=== PATIENT | female | born 1980 | race Caucasian/White ===

== ENCOUNTER 2017-03-03 10:05 | Emergency (ER) | payer MEDICAID ==
[~2017-03-03] VITALS: Ht 162.6 cm; Wt 96.6 kg
[2017-03-03 10:10] VITALS: BP 143/70
== END 2017-03-03 13:51 | disposition home or self-care (01) ==
LOC: ED 10:05
DX: J03.90 Acute tonsillitis, unspecified (principal); Z98.51 Tubal ligation status
CPT/HCPCS: J0696; J1100

== ENCOUNTER 2017-03-05 17:58 | Emergency (ER) | payer MEDICAID ==
[2017-03-05 19:48] LABS: PLATELET COUNT 210 x10^3mcL (130-400); RED CELL DISTRIBUTION WIDTH 13.9 % (11.5-14.5)
[2017-03-05 20:02] LABS: BAND NEUTROPHIL 0 % (0-10); BASOPHIL 0 % (0-2); MONOCYTE 10 % (0-7); SEGMENTED NEUTROPHILS 78 % (37-75); rbc morphology (normal/abnorm) NORMAL (NORMAL)
[2017-03-05 22:13] VITALS: BP 110/65
== END 2017-03-05 22:13 | disposition home or self-care (01) ==
LOC: ED 17:58
PROVIDERS: Emergency Medicine Emergency Medical Services
DX: J01.90 Acute sinusitis, unspecified (principal); J03.90 Acute tonsillitis, unspecified; H66.93 Otitis media, unspecified, bilateral; J30.9 Allergic rhinitis, unspecified; Z79.891 Long term (current) use of opiate analgesic; Z79.2 Long term (current) use of antibiotics; Z79.1 Long term (current) use of non-steroidal anti-inflammatories (NSAID)
CPT/HCPCS: J0561; J1100; J1885; Q9967